=== PATIENT | female | born 1950 | race Caucasian/White ===

== ENCOUNTER 2022-01-05 08:34 | Day surgery (SDC) | payer OTHER ==
[~2022-01-05] VITALS: Ht 175.3 cm; Wt 59.0 kg
[2022-01-05] MEDS ORDERED: LR 1,000 ML IV.SOLN IV ONE (14:19)
[2022-01-05] MEDS ORDERED: SEVOFLURANE 15 MIN GAS INH ONE (14:19)
[2022-01-05] MEDS ORDERED: NS 1000 ML IV.SOLN IV ONE (14:19)
[2022-01-05] MEDS ORDERED: NORMAL SALINE 10 ML VIAL IVP ONE (14:19)
[2022-01-05] MEDS ORDERED: ONDANSETRON HCL 4 MG/2 ML VIAL IVP ONE (14:19)
[2022-01-05] MEDS ORDERED: METOCLOPRAMIDE HCL 10 MG/2 ML VIAL IVP ONE (14:19)
[2022-01-05] MEDS ORDERED: LABETALOL 100 MG/ 20ML VIAL IVP PRN (15:30)
[2022-01-05] MEDS ORDERED: hydrALAZINE HCL 20 MG/ML VIAL IVP PRN (15:30)
[2022-01-05] MEDS ORDERED: LR 1,000 ML IV SCH (15:30)
[2022-01-05 19:06] VITALS: BP_SYST 103
== END 2022-01-05 17:20 | disposition home or self-care (01) ==
LOC: SDS 08:34 → SMU 08:37 → SDS 17:20
PROVIDERS: ATTEND Otolaryngology
DX: H65.492 Other chronic nonsuppurative otitis media, left ear (principal); E11.9 Type 2 diabetes mellitus without complications; F41.9 Anxiety disorder, unspecified; E78.5 Hyperlipidemia, unspecified; Z88.2 Allergy status to sulfonamides; Z88.6 Allergy status to analgesic agent; Z90.89 Acquired absence of other organs; Z90.710 Acquired absence of both cervix and uterus; Z90.49 Acquired absence of other specified parts of digestive tract; Z96.649 Presence of unspecified artificial hip joint; Z20.822 Contact with and (suspected) exposure to COVID-19
CPT/HCPCS: 69436; 82962; 36415; 87426; J2765; J2405; J7120; J7030; L8699